=== PATIENT | female | born 1970 ===

== ENCOUNTER → 2021-02-11 | Outpatient (CLI) | payer OTHER ==
[~2021-02-11] MED LIST: GADOTERATE 10 MMOL/20 ML VIAL ONE
== END | disposition home or self-care (01) ==
LOC: CFH 08:07
PROVIDERS: ATTEND Internal Medicine Hematology & Oncology
DX: C50.812 Malignant neoplasm of overlapping sites of left female breast (principal)
CPT/HCPCS: 77049; A9575; C8908